=== PATIENT | male | born 1990 | race American Indian/Alaskan Native ===

== ENCOUNTER 2018-09-13 12:16 | Emergency (ER) | payer SELFPAY ==
[~2018-09-13] VITALS: Ht 182.9 cm; Wt 99.8 kg
[2018-09-13 12:16] VITALS: BP_SYST 129
[2018-09-13 14:52] VITALS: BP_SYST 129
== END 2018-09-13 14:30 | disposition home or self-care (01) ==
LOC: SED 12:16
DX: M25.532 Pain in left wrist (principal); V43.52XA Car driver injured in collision with other type car in traffic accident, initial encounter; Y93.89 Activity, other specified; Y92.89 Other specified places as the place of occurrence of the external cause; Y99.8 Other external cause status
CPT/HCPCS: 70450-TC; 73140-TC; 99284